=== PATIENT | female | born 1985 | race Caucasian/White ===

== ENCOUNTER → 2016-11-11 | Outpatient (CLI) | payer OTHER ==
--- NOTE | 2016-11-11 13:34 | RADIOLOGY REPORT (SQ) ---
EXAM DESCRIPTION: CT FACIAL AREA WITHOUT COMPLETED DATE/TIME: 11/11/2016 1:14 pm REASON FOR STUDY: *LT SIALOGRAM* SIALOADENITIS, UNSPECIFIED (K11.20) K11.20 SIALOADENITIS, UNSPECIF IED COMPARISON: None. TECHNIQUE: Noncontrasted images through the facial bones and orbits windowed for bone and soft tissu e. Additional coronal and sagittal reconstructed images reviewed. All images stored on PACS. Because of a history of left-sided submandibular gland inflammation/sialadenitis, a sialogram was att empted. There is a 4 x 8 mm stone in the distal left submandibular duct adjacent to the outlet into the floor of mouth. I was unable to cannulate the left submandibular duct with either a 27 or 21 gau ge catheter, because this stone is at the distal most submandibular duct. All CT scanners at this facility use dose modulation, iterative reconstruction, and/or weight based d osing when appropriate to reduce radiation dose to as low as reasonably achievable (ALARA). [facility]: Dose Right [facility]: CareDose [facility]: Dose Right [facility]: Teradose 4D [facility]: [employer] RADIATION DOSE: mGy. LIMITATIONS: None. FINDINGS: Patient gives a history of left submandibular gland recurrent inflammation. On axial imag e 13, of 4 x 8 mm stone is present in the distal left submandibular duct. I was unable to cannulate the duct for a CT sialogram, with either a 21 or 27 gauge catheter. FACIAL BONES: No fracture or bone lesion. ORBITS: Intact. No fracture. Symmetric intact globes and retroorbital soft tissues. PARANASAL SINUSES: Clear. No significant mucosal thickening, mass or fluid. No nasal polyps. Maxill arianna sinus outlets are patent. SOFT TISSUES: No mass or edema. INFERIOR BRAIN: Limited view. No acute findings. MAJOR SALIVARY GLANDS: Bilateral parotid glands are unremarkable. Right submandibular gland normal s ize. Left submandibular gland is mildly enlarged, 2.5 x 2 x 3.5 cm, with very mild surrounding infla mmation in the adjacent fat along the left submandibular region. IMPRESSION: 4 x 8 mm distal left submandibular duct stone. Evidence of inflammation left submandibular gland which is slightly enlarged and has surrounding stra nding in the adjacent fat. No other left-sided submandibular calculi are seen. Unable to cannulate the left submandibular duct with either 821 or 27 gauge catheter, due to the left mandibular duct stone location. TECHNICAL DOCUMENTATION: JOB ID: [id number] Quality ID # [id number]: Final reports with documentation of one or more dose reduction techniques (e.g., Au tomated exposure control, adjustment of the mA and/or kV according to patient size, use of iterative reconstruction technique) 2010 [employer]- All Rights Reserved
== END ==
LOC: RAD 12:15
PROVIDERS: ATTEND Otolaryngology
DX: K11.20 Sialoadenitis, unspecified (principal)
CPT/HCPCS: 70486

== ENCOUNTER 2017-03-31 15:59 | Emergency (ER) | payer OTHER ==
[2017-03-31 16:08] VITALS: BP 133/87
--- NOTE | 2017-03-31 16:21 | ER Document Report ---
ED General - General Chief Complaint: Laceration Stated Complaint: FINGER LACERATION Time Seen by Provider: 03/31/17 16:19 Mode of Arrival: Ambulatory Information source: Patient Notes: Patient is a 31 year old female who presents with laceration to left thumb that occurred a few hours prior to arrival. She states she was cutting wood when the tool slipped and cut her finger. She states last tetanus was 4 years ago. She endorses bleeding but states it has stopped with pressure. Denies difficulty ROM of finger. Otherwise doing well. TRAVEL OUTSIDE OF THE [place] IN LAST 30 DAYS: No - Related Data Allergies/Adverse Reactions: No Known Allergies Allergy (Verified 03/31/17 16:01) Past Medical History - General Information source: Patient - Social History Smoking Status: Never Smoker Family History: Reviewed & Not Pertinent Review of Systems - Review of Systems Constitutional: See HPI EENT: No symptoms reported Cardiovascular: No symptoms reported Respiratory: No symptoms reported Gastrointestinal: No symptoms reported Genitourinary: No symptoms reported Female Genitourinary: No symptoms reported Musculoskeletal: No symptoms reported Skin: See HPI Hematologic/Lymphatic: No symptoms reported Neurological/Psychological: No symptoms reported Physical Exam - Vital signs Vitals: Temp Pulse Resp BP Pulse Ox 98.1 F 86 18 133/87 H 100 03/31/17 16:07 03/31/17 16:07 03/31/17 16:07 03/31/17 16:07 03/31/17 16:07 - Notes Notes: PHYSICAL EXAM: CONSTITUTIONAL: Alert and oriented, well-appearing and in no acute distress. HENT: Normocephalic, atraumatic. Trachea midline. Uvula midline. Moist mucous membranes. EYES: Pupils equal round and reactive to light, EOM intact. Sclera anicteric, conjunctiva are normal. No entrapment. HEART: Regular rate and rhythm without murmurs. LUNGS: CTAB and equal. No wheezes, rales or rhonchi. EXTREMITIES: Normal range of motion, no pitting edema. No cyanosis. Cap Refill < 3 seconds. NEURO: Cranial nerves grossly intact. Normal sensory/motor exams. PSYCH: Normal mood, normal affect. SKIN: Warm and dry. Normal turgor. No rashes or lesions noted. 1cm well approximated laceration to dorsal surface of thumb, no bleeding noted. Course - Re-evaluation Re-evalutation: 03/31/17 16:21 Patient seen and examined. 1 cm well approximated laceration to dorsal surface of left thumb, closed using skin adhesive. Tetanus UTD. Discussed wound care instructions. At this time, will discharge with return precautions and follow-up recommendations. Verbal discharge instructions given at the bedside and opportunity for questions given. Medication warnings reviewed. Patient is in agreement with this plan and has verbalized understanding of return precautions and the need for primary care follow-up in the next 24-72 hours. - Vital Signs Vital signs: Temp Pulse Resp BP Pulse Ox 98.1 F 86 18 133/87 H 100 03/31/17 16:07 03/31/17 16:07 03/31/17 16:07 03/31/17 16:07 03/31/17 16:07 Procedures - Laceration/Wound Repair Left Dorsal Thumb Wound length (cm): 1 Wound's Depth, Shape: Superficial Wound explored: Clean Wound Repaired With: Dermabond Discharge - Discharge Clinical Impression: Laceration of thumb Qualifiers: Encounter type: initial encounter Damage to nail status: without damage Foreign body presence: without foreign body Laterality: left Qualified Code(s): S61.012A - Laceration without foreign body of left thumb without damage to nail , initial encounter Condition: Stable Disposition: HOME, SELF-CARE Additional Instructions: NON-SUTURED LACERATION: Your laceration did not require suturing. Some lacerations cannot be sutured because of increased infection risk, while others simply don't need stitches because they are shallow or very short. Your injury should be protected while it heals. Usually complete healing takes 10 to 14 days. Keep the dressing clean and dry, and change it every day. If you notice increasing pain, redness, swelling, drainage, or tender lumps in the armpit or groin above the injury, infection may be present. You should call the doctor at once. SOAP CLEANSING: Gently wash the wound daily using a mild soap (like Ivory, Phisoderm, Neutrogena). Use warm water, rubbing gently until all debris, ooze, and crusting have been washed from the wound. Allow to dry briefly (about 10 minutes) after cleaning. Repeat this cleansing at least three times a day for the first two days and then once or twice a day. ANTIBIOTIC OINTMENT PROTECTION: Your wounds are such that dressing them is not practical or optional. After cleansing, you should apply a thin coating of antibiotic ointment ( Bacitracin, not Neosporin) to the wounds at least three times daily. This lessens infection risk, and may decrease the amount of scarring. Use a q-tip or dull butter knife, not your finger, to apply this ointment. Any debris or ooze which builds up in the ointment should be gently rubbed off with a sterile gauze pad. Harder crusting may need to be gently scrubbed off with a clean wash cloth with soap and warm water, perhaps applying a warm, wet wash cloth to the wound for ten minutes first. Development of redness, severe itching, or blistering may mean allergy to the ointment. See the doctor. FOLLOW-UP CARE: If you have been referred to another physician for follow-up care, call that physicians office for an appointment as you were instructed. If you experience a significant change in your laceration, or if you are concerned there may be an infection (swelling, redness, drainage, increasing tenderness, red streaks, tender lumps in the armpit or groin above the laceration, or fever) , return to the Emergency Department immediately re-evaluation. Forms: Elevated Blood Pressure
== END 2017-03-31 17:59 | disposition home or self-care (01) ==
LOC: ER 15:59
DX: S61.012A Laceration without foreign body of left thumb without damage to nail, initial encounter (principal); W26.0XXA Contact with knife, initial encounter; Y93.89 Activity, other specified
CPT/HCPCS: 99282